=== PATIENT | male | born 1960 | race Caucasian/White ===

== ENCOUNTER 2022-06-30 00:49 | Emergency (ER) | payer OTHER ==
[~2022-06-30] VITALS: Ht 167.6 cm; Wt 104.3 kg
--- NOTE | 2022-06-30 01:15 | NUR ---
Dr. Beltran at bedside for MSE.
[2022-06-30] MEDS ORDERED: PENICILLIN G BENZATHINE 2.4 MMU/4 ML DISP.SYRIN IM ONE ×2 (01:29→01:30)
[2022-06-30] MEDS ORDERED: NAPR-1164 PO (01:52)
[2022-06-30] MEDS ORDERED: CLOT15CR27 TP (01:52)
--- NOTE | 2022-06-30 02:21 | NUR ---
Xray at bedside.
--- NOTE | 2022-06-30 02:40 | NUR ---
Patient given written and verbal discharge instructions. Patient verbalizes understanding of instructions. Patient is ambulatory with steady gait. Refuses offer of [facility] placement. Patient given list of available shelters in surrounding area. Pt out of ER with steady gait, no acute signs of distress, VSS, all belongings taken.
[2022-06-30 02:41] VITALS: BP 110/43
[2022-07-02 00:06] LABS: *GC NAA Negative (Negative)
[2022-07-02 02:06] LABS: *TRIC.VAG. NAA Negative (Negative)
== END 2022-06-30 02:41 | disposition home or self-care (01) ==
LOC: ER 00:59
DX: A53.9 Syphilis, unspecified (principal); R21 Rash and other nonspecific skin eruption; M25.512 Pain in left shoulder; F17.210 Nicotine dependence, cigarettes, uncomplicated; Z85.46 Personal history of malignant neoplasm of prostate; Z59.00 Homelessness unspecified
CPT/HCPCS: 99284; 99406; 73030; 96372; 87491; J0561; A4663

== ENCOUNTER 2023-02-18 03:34 | Emergency (ER) | payer OTHER ==
[~2023-02-18] VITALS: Ht 170.2 cm; Wt 95.3 kg
[~2023-02-18 03:34] MED LIST: CLOT15CR27 TP; NAPR-1164 PO
[2023-02-18] MEDS ORDERED: HYDROMORPHONE 1 MG/1 ML DISP.SYRIN ONE (04:16)
[2023-02-18] MEDS ORDERED: KETOROLAC TROMETHAMINE 60 MG INJ IM ONE (04:16)
--- NOTE | 2023-02-18 04:22 | NUR ---
[employer] was done. See down time paper works.
--- NOTE | 2023-02-18 05:30 | NUR ---
Patient sleeping on gurny bwith no distress noted.
[2023-02-18] MEDS ORDERED: IBUP-1955 PO (06:39)
[2023-02-18] MEDS ORDERED: CYCL5TAB PO (06:39)
--- NOTE | 2023-02-18 06:54 | NUR ---
Patient discharged to home in stable condition wit family taking patient home. Written and verbal after care instructions given. Patient verbalizes understanding of instructions. Stressed follow up or return to ER for worsening s/s.
[2023-02-18 06:56] VITALS: BP 140/78
== END 2023-02-18 06:57 | disposition home or self-care (01) ==
LOC: ER 03:38
DX: S76.911A Strain of unspecified muscles, fascia and tendons at thigh level, right thigh, initial encounter (principal); F17.210 Nicotine dependence, cigarettes, uncomplicated; Z88.8 Allergy status to other drugs, medicaments and biological substances; Z79.899 Other long term (current) drug therapy; V87.8XXA Person injured in other specified noncollision transport accidents involving motor vehicle (traffic), initial encounter; Y93.89 Activity, other specified; Y92.89 Other specified places as the place of occurrence of the external cause; Y99.8 Other external cause status
CPT/HCPCS: 99284; 73700; 93971; J1885; J1170; A4663

== ENCOUNTER 2023-02-27 02:03 | Emergency (ER) | payer OTHER ==
[~2023-02-27] VITALS: Ht 167.6 cm; Wt 77.1 kg
[~2023-02-27 02:03] MED LIST changes: +CYCL5TAB PO; +IBUP-1955 PO
[2023-02-27 03:44] LABS: HEMATOCRIT 32.4 % (36.7-47.1); MEAN CORPUSCULAR HEMOGLOBIN 29.6 uug (23.8-33.4); MEAN CORPUSCULAR VOLUME 86.7 fL (73.0-96.2); PLATELET COUNT (AUTO) 333 K/uL (152-348)
[2023-02-27 03:56] LABS: CARBON DIOXIDE 29 mmol/L (21-32); CHLORIDE 105 mmol/L (98-107); CREATININE 1.2 mg/dL (0.6-1.3); GLUCOSE 102 mg/dL (74-106); POTASSIUM 3.4 mmol/L (3.5-5.1); UREA NITROGEN, BLOOD 16 mg/dL (7-18)
[2023-02-27 03:59] LABS: ETHANOL < 3 MG/DL (0-0)
--- NOTE | 2023-02-27 04:45 | NUR ---
Patient is currently in room, resting rise and fall of chest observed.
--- NOTE | 2023-02-27 07:12 | NUR ---
Patient discharged to home in stable condition. Written and verbal after care instructions given. Patient verbalizes understanding of instructions. Stressed follow up or return to ER for worsening s/s. Patient walked out with steady gait.
[2023-02-27 07:32] VITALS: BP 156/64
== END 2023-02-27 07:18 | disposition home or self-care (01) ==
LOC: ER 02:14
DX: Z04.1 Encounter for examination and observation following transport accident (principal); R07.89 Other chest pain; F17.210 Nicotine dependence, cigarettes, uncomplicated; R51.9 Headache, unspecified; Z88.8 Allergy status to other drugs, medicaments and biological substances; Z79.1 Long term (current) use of non-steroidal anti-inflammatories (NSAID); Z79.899 Other long term (current) drug therapy; V89.2XXA Person injured in unspecified motor-vehicle accident, traffic, initial encounter; Y93.89 Activity, other specified; Y92.89 Other specified places as the place of occurrence of the external cause; Y99.8 Other external cause status
CPT/HCPCS: 36415; 70450; 85025; A4663; G0480

== ENCOUNTER 2023-11-03 22:26 | Emergency (ER) | payer OTHER ==
[~2023-11-03] VITALS: Ht 172.7 cm; Wt 95.3 kg
[2023-11-03] MEDS ORDERED: FUROSEMIDE 40 MG/4 ML VIAL IV ONE (22:45)
[2023-11-03] MEDS ORDERED: FUROSEMIDE 40 MG/4 ML VIAL ONE (23:22)
[2023-11-03 23:24] LABS: BASOPHILS # (AUTO) 0.1 K/UL (0.0-0.2); BASOPHILS % (AUTO) 0.8 % (0.0-2.0); EOSINOPHILS # (AUTO) 0.2 K/uL (0.0-0.7); HEMOGLOBIN 12.1 g/dL (12.5-16.3); MEAN CORPUSCULAR HEMOGLOBIN 29.3 uug (23.8-33.4); MEAN CORPUSCULAR HGB CONC 34 g/dL (32.5-36.3); MEAN CORPUSCULAR VOLUME 87.2 fL (73.0-96.2); MONOCYTES # (AUTO) 0.7 K/uL (0.1-1.30); MONOCYTES % (AUTO) 10.8 % (0.0-11.0); NEUTROPHILS # (AUTO) 4.9 K/uL (1.8-8.9); NEUTROPHILS % (AUTO) 71.4 % (38.5-71.5); PLATELET COUNT (AUTO) 395 K/uL (152-348); RED BLOOD CELL COUNT(AUTO) 4.13 MIL/uL (4.06-5.63); WHITE BLOOD COUNT (AUTO) 6.9 K/uL (3.6-10.2)
[2023-11-03 23:41] LABS: DIFFERENTIAL COMMENT 1
[2023-11-03 23:44] LABS: CALCIUM 9.4 mg/dL (8.5-10.1); CARBON DIOXIDE 32 mmol/L (21-32); CHLORIDE 97 mmol/L (98-107); CREATININE 1.3 mg/dL (0.6-1.3); ETHANOL < 3 MG/DL (0-10); GLUCOSE 102 mg/dL (74-106); POTASSIUM 4.3 mmol/L (3.5-5.1); SODIUM SERUM 137 mmol/L (136-145); UREA NITROGEN, BLOOD 19 mg/dL (7-18)
[2023-11-03 23:57] LABS: ALANINE AMINOTRANSFERASE 34 U/L (16-63); ALBUMIN 3.1 g/dL (3.4-5.0); ALKALINE PHOSPHATASE 344 U/L (50-136); ASPARTATE AMINOTRANSFERASE 21 U/L (15-37); BILIRUBIN,TOTAL 0.7 mg/dL (0.2-1.0); NT-PRO BNP 9 pg/mL (0-125)
[2023-11-04 02:14] LABS: *BILIRUBIN,URIN NEGATIVE (NEGATIVE); *BLOOD, URINE NEGATIVE (NEGATIVE); *CLARITY,URINE CLEAR (CLEAR); *COLOR,URINE YELLOW (YELLOW); *KETONES,URINE NEGATIVE (NEGATIVE); *PROTEIN,URINE NEGATIVE (NEGATIVE); *UROBILINOGEN,URINE 0.2 E.U./dl (NORMAL); LEUKOCYTE ESTERASE ,URINE 1+ (NEGATIVE); NITRITE, URINE NEGATIVE (NEGATIVE); PH,URINE 6.5 (5.0-8.0); UGLUCOSE NEGATIVE (NEGATIVE)
[2023-11-04 02:16] LABS: BACTERIA,URINE NONE SEEN /HPF (NONE SEEN); RBC,URINE 0-3 /HPF (0-3); SQUAMOUS EPITHELIAL CELL,UR NONE SEEN /HPF (NONE SEEN)
[2023-11-04 02:24] LABS: *AMPHETAMINE, URINE POSITIVE (NEGATIVE); *BARBITURATE, URINE NEGATIVE (NEGATIVE); *BENZODIAZEPINE, URINE NEGATIVE (NEGATIVE); *CANNABINOID, URINE NEGATIVE (NEGATIVE); *COCCAINE, URINE NEGATIVE (NEGATIVE); *OPIATE, URINE NEGATIVE (NEGATIVE); *PHENCYCLIDINE SCREEN,URINE POSITIVE (NEGATIVE); FENTANYL, URINE NEGATIVE (NEGATIVE)
[2023-11-04 08:15] VITALS: BP 148/77; O2SAT 97
== END 2023-11-04 08:15 | disposition home or self-care (01) ==
LOC: ER 22:28
DX: R06.02 Shortness of breath (principal); I50.9 Heart failure, unspecified; R07.89 Other chest pain; F17.210 Nicotine dependence, cigarettes, uncomplicated; Z88.8 Allergy status to other drugs, medicaments and biological substances; Z79.1 Long term (current) use of non-steroidal anti-inflammatories (NSAID); Z79.899 Other long term (current) drug therapy
CPT/HCPCS: 80053; 83880; 85025; 84484; 36415; 93005; 71045; 99285; 96374; 80320; 80307; 81001; J1940; A4606; A4663; G0480

== ENCOUNTER 2023-11-10 18:59 | Emergency (ER) | payer OTHER ==
[~2023-11-10] VITALS: Ht 167.6 cm; Wt 99.8 kg
[2023-11-10] MEDS ORDERED: TETRACAINE HCL 0.5% OPHT DROP 2 ML BOTTLE OP ONE (19:45)
[2023-11-10] MEDS ORDERED: FLUORESCEIN SODIUM 1 MG STRIP OP ONE (19:45)
[2023-11-10] MEDS ORDERED: FLUORESCEIN SODIUM 1 MG STRIP ONE (19:46)
[2023-11-10] MEDS ORDERED: TETRACAINE HCL 0.5% OPHT DROP 2 ML BOTTLE ONE (19:46)
[2023-11-10] MEDS ORDERED: VANCOMYCIN IV 1,000 MG in IV DEXTROSE 5% 250 ML IV ONE (20:15)
[2023-11-10] MEDS ORDERED: CEFTAZIDIME 1 G in IV DEXTROSE 5% 50 ML IV ONE (20:15)
[2023-11-10] MEDS ORDERED: TDAP DIPH,PERTUSS,TET VAC/PF 0.5 ML DISP.SYRIN IM ONE ×2 (20:30→21:09)
[2023-11-10] MEDS ORDERED: CEFTAZIDIME 1 G VIAL ONE (20:48)
[2023-11-10] MEDS ORDERED: VANCOMYCIN IV 200 ML ONE (21:08)
[2023-11-10 22:48] VITALS: BP 150/85; TEMP 98; O2SAT 99
== END 2023-11-10 22:48 | disposition left against medical advice (07) ==
LOC: ER 19:01
DX: S05.32XA Ocular laceration without prolapse or loss of intraocular tissue, left eye, initial encounter (principal); H11.422 Conjunctival edema, left eye; F17.200 Nicotine dependence, unspecified, uncomplicated; Z79.899 Other long term (current) drug therapy; Z88.1 Allergy status to other antibiotic agents; Y04.0XXA Assault by unarmed brawl or fight, initial encounter; Y93.89 Activity, other specified; Y92.89 Other specified places as the place of occurrence of the external cause; Y99.8 Other external cause status
CPT/HCPCS: 99285; 96365; 70480; 96366; 90715; 96368; J0713; J3370; A4606; A4663

== ENCOUNTER 2024-06-27 03:15 | Emergency (ER) | payer OTHER ==
[~2024-06-27] VITALS: Ht 167.6 cm; Wt 88.5 kg
[2024-06-27] MEDS ORDERED: HYDROCODONE/APAP 5-325MG TABLET ONE (03:47)
[2024-06-27] MEDS: HYDROCODONE/APAP 5-325MG TABLET PO ONE (03:50)
[2024-06-27 04:22] LABS: *BILIRUBIN,URIN NEGATIVE (NEGATIVE); *BLOOD, URINE 2+ (NEGATIVE); *CLARITY,URINE CLEAR (CLEAR); *COLOR,URINE LIGHT YELLOW (YELLOW); *KETONES,URINE NEGATIVE (NEGATIVE); *PROTEIN,URINE 2+ (NEGATIVE); *UROBILINOGEN,URINE 0.2 E.U./dl (NORMAL); LEUKOCYTE ESTERASE ,URINE 1+ (NEGATIVE); NITRITE, URINE NEGATIVE (NEGATIVE); UGLUCOSE NEGATIVE (NEGATIVE)
[2024-06-27 04:46] LABS: BACTERIA,URINE RARE /HPF (NONE SEEN); SQUAMOUS EPITHELIAL CELL,UR FEW /HPF (NONE SEEN)
[2024-06-27 05:15] VITALS: BP 118/76; TEMP 98.2; O2SAT 100
== END 2024-06-27 05:15 | disposition home or self-care (01) ==
LOC: ER 03:17
DX: C61 Malignant neoplasm of prostate (principal); R10.9 Unspecified abdominal pain; F17.200 Nicotine dependence, unspecified, uncomplicated; Z79.1 Long term (current) use of non-steroidal anti-inflammatories (NSAID); Z79.899 Other long term (current) drug therapy; Z88.1 Allergy status to other antibiotic agents
CPT/HCPCS: A4606; A4663

== ENCOUNTER 2024-09-18 14:40 | Emergency (ER) | payer OTHER ==
[~2024-09-18] VITALS: Ht 167.6 cm; Wt 81.6 kg
[2024-09-18] MEDS ORDERED: LIDOCAINE HCL 1% 20 ML VIAL ONE (16:33)
[2024-09-18] MEDS: LIDOCAINE HCL 1% 20 ML VIAL TP ONE (17:11)
[2024-09-18] MEDS ORDERED: CLOT15CR27 TP (17:14)
[2024-09-18] MEDS ORDERED: BETA15CR4 TP (17:14)
[2024-09-18 17:33] VITALS: BP 120/73; O2SAT 98
== END 2024-09-18 17:36 | disposition home or self-care (01) ==
LOC: ER 14:45
DX: N47.1 Phimosis (principal); F17.200 Nicotine dependence, unspecified, uncomplicated; Z85.46 Personal history of malignant neoplasm of prostate; Z79.899 Other long term (current) drug therapy
CPT/HCPCS: 54450; 99284; J3490; A4606; A4663

== ENCOUNTER 2024-12-26 23:27 | Emergency (ER) | payer OTHER ==
[~2024-12-26] VITALS: Ht 167.6 cm; Wt 90.7 kg
[~2024-12-26 23:27] MED LIST changes: +BETA15CR4 TP
[2024-12-26 23:45] VITALS: O2SAT 98
== END 2024-12-27 01:30 | disposition left against medical advice (07) ==
LOC: ER 23:31
DX: Z00.00 Encounter for general adult medical examination without abnormal findings (principal); Z53.21 Procedure and treatment not carried out due to patient leaving prior to being seen by health care provider
CPT/HCPCS: A4606; A4663

== ENCOUNTER 2025-04-13 00:01 | Emergency (ER) | payer OTHER ==
[~2025-04-13] VITALS: Ht 167.6 cm; Wt 90.7 kg
[2025-04-13] MEDS ORDERED: TAMS-3 PO (00:21)
[2025-04-13] MEDS ORDERED: OXYC30TA2 PO (00:21)
[2025-04-13] MEDS ORDERED: AMLO-212 PO (00:21)
[2025-04-13] MEDS ORDERED: ENZA40CA PO (00:21)
[2025-04-13] MEDS ORDERED: HYDR25TA4 PO (00:21)
[2025-04-13] MEDS ORDERED: CARI350T27 PO (00:21)
[2025-04-13] MEDS ORDERED: ONDANSETRON ODT 4 MG TAB.RAPDIS ONE (00:32)
[2025-04-13] MEDS ORDERED: HYDROMORPHONE HCL 2 MG TABLET ONE (00:33)
[2025-04-13] MEDS: HYDROMORPHONE HCL 2 MG TABLET PO ONE (00:37)
[2025-04-13] MEDS: ONDANSETRON ODT 4 MG TAB.RAPDIS SL ONE (00:37)
[2025-04-13 00:47] LABS: *BILIRUBIN,URIN NEGATIVE (NEGATIVE); *BLOOD, URINE 2+ (NEGATIVE); *CLARITY,URINE SLIGHTLY CLOUDY (CLEAR); *COLOR,URINE YELLOW (YELLOW); *KETONES,URINE NEGATIVE (NEGATIVE); *PROTEIN,URINE 2+ (NEGATIVE); *UROBILINOGEN,URINE 0.2 E.U./dl (NORMAL); LEUKOCYTE ESTERASE ,URINE 1+ (NEGATIVE); NITRITE, URINE NEGATIVE (NEGATIVE); PH,URINE 6.5 (5.0-8.0); UGLUCOSE NEGATIVE (NEGATIVE)
[2025-04-13 00:52] LABS: RBC,URINE 20-50 /HPF (0-3)
[2025-04-13 00:53] LABS: BACTERIA,URINE FEW /HPF (NONE SEEN); SQUAMOUS EPITHELIAL CELL,UR FEW /HPF (NONE SEEN)
[2025-04-13] MEDS ORDERED: NITROFURANTOIN/NITROFURAN MAC 100 MG CAPSULE PO ONE (01:09)
[2025-04-13] MEDS: NITROFURANTOIN/NITROFURAN MAC 100 MG CAPSULE PO ONE (01:11)
[2025-04-13] MEDS ORDERED: NITR-84 PO (01:37)
[2025-04-13] MEDS ORDERED: HYDR-3980 PO (01:37)
[2025-04-13 01:56] VITALS: BP 103/45; TEMP 97.8; O2SAT 97
== END 2025-04-13 01:57 | disposition home or self-care (01) ==
LOC: ER 00:10
DX: R10.2 Pelvic and perineal pain (principal); C61 Malignant neoplasm of prostate; C79.51 Secondary malignant neoplasm of bone; Z59.01 Sheltered homelessness; Z79.899 Other long term (current) drug therapy; Z87.39 Personal history of other diseases of the musculoskeletal system and connective tissue; F17.210 Nicotine dependence, cigarettes, uncomplicated; Z88.8 Allergy status to other drugs, medicaments and biological substances; Z90.5 Acquired absence of kidney
CPT/HCPCS: 51798; 87077; 87086; A4606; A4663; Q0162

== ENCOUNTER 2025-04-30 04:47 | Emergency (ER) | payer OTHER ==
[~2025-04-30] VITALS: Ht 167.6 cm; Wt 99.8 kg
[~2025-04-30 04:47] MED LIST changes: +AMLO-212 PO; -BETA15CR4 TP; +CARI350T27 PO; -CLOT15CR27 TP; -CYCL5TAB PO; +ENZA40CA PO; +HYDR-3980 PO; +HYDR25TA4 PO; -IBUP-1955 PO; -NAPR-1164 PO; +NITR-84 PO; +OXYC30TA2 PO; +TAMS-3 PO
[2025-04-30] MEDS ORDERED: LACT10SO58 PO (05:21)
[2025-04-30] MEDS ORDERED: LEVO500T90 PO (05:21)
[2025-04-30] MEDS ORDERED: TAMS-3 PO (05:21)
[2025-04-30 06:08] VITALS: BP 118/68; O2SAT 97
== END 2025-04-30 05:54 | disposition home or self-care (01) ==
LOC: ER 04:56
DX: N39.0 Urinary tract infection, site not specified (principal); C61 Malignant neoplasm of prostate; R31.9 Hematuria, unspecified; F17.210 Nicotine dependence, cigarettes, uncomplicated; Z79.899 Other long term (current) drug therapy; Z87.39 Personal history of other diseases of the musculoskeletal system and connective tissue; Z88.8 Allergy status to other drugs, medicaments and biological substances; Z60.2 Problems related to living alone
CPT/HCPCS: A4606; A4663; C1758

== ENCOUNTER 2025-07-10 20:14 | Emergency (ER) | payer OTHER ==
[~2025-07-10] VITALS: Ht 167.6 cm; Wt 99.8 kg
[~2025-07-10 20:14] MED LIST changes: +LACT10SO58 PO; +LEVO500T90 PO
[2025-07-10 20:44] VITALS: BP 152/118
[2025-07-10] MEDS ORDERED: OXYC-133 PO (21:04)
[2025-07-10] MEDS ORDERED: OXYCODONE/APAP 5-325 MG TABLET ONE ×2 (21:07→22:16)
[2025-07-10] MEDS ORDERED: ONDANSETRON ODT 4 MG TAB.RAPDIS ONE (21:07)
[2025-07-10] MEDS: OXYCODONE/APAP 5-325 MG TABLET PO ONE ×4 (21:10→22:54)
[2025-07-10] MEDS: ONDANSETRON ODT 4 MG TAB.RAPDIS SL ONE (21:11)
[2025-07-10 22:59] VITALS: BP 142/85; O2SAT 97
== END 2025-07-10 23:00 | disposition home or self-care (01) ==
LOC: ER 20:14
DX: C61 Malignant neoplasm of prostate (principal); C79.51 Secondary malignant neoplasm of bone; F17.210 Nicotine dependence, cigarettes, uncomplicated; G89.29 Other chronic pain; Z43.6 Encounter for attention to other artificial openings of urinary tract; Z79.899 Other long term (current) drug therapy
CPT/HCPCS: A4606; A4663; Q0162